=== PATIENT | male | born 1955 | race Caucasian/White ===

== ENCOUNTER 2016-12-09 02:32 | Emergency (ER) | payer OTHER ==
[~2016-12-09] VITALS: Ht 182.9 cm; Wt 113.6 kg
--- NOTE | 2016-12-09 02:29 | ED.REPORT ---
HPI-Stroke / CVA Dec 09, 2016 ED Provider: Dr. Christopher 61 y/o male with a hx of DM, and spinal stenosis presents to the ED via EMS due to right sided weakness, onset 30 min prior to arrival. As per the son, the pt was last normal between 21:00 - 22:00. The pt's son heard a thud and found him on the floor. He states "he must have gotten off the bed and walked around because he was on the other side of the bed". As per the EMS, the pt has right sided weakness, unintelligible speech and is unable to follow commands. He was completely immobile on the right side and could not possibly walked around the bed once the stroke occurred. His BP en route was 140/50 and he was A-fib with bradycardia. The A. fib is reportedly new. Nursing Notes Stated Complaint: CODE STROKE Nursing Notes Reviewed: Yes General Time Seen by Provider: 02:45 Chief Complaint Weakness Right-sided Hx Obtained From: Son, EMS Arrived By: Ambulance Time last known well 21:00 - 22:00 Sudden in Onset?: Yes Symptom Duration: Since onset Progression Since Onset: Constant Recent Healthcare: No recent doctor visit Similar Sx Previous: No Risk Factors NIH Stroke Scale Level of Consciousness: Movements to pain (2) Ask Month & Age: Both questions right (0) Open/Close Eyes/Hand [employer]mer [employer]: Performs both tasks (0) Horizontal EO Movements: Tot/forced gaze pares (2) Visual Calix: Complete hemianopsia (2) Facial Palsy: Partial paral, lower (2) Right Arm Motor Drift (10s): No effort, limb fails (3) Left Arm Motor Drift (10s): No drift 10 sec (0) Right Leg Motor Drift (5s): No movement (4) Left Leg Motor Drift (5s): No drift 5 sec (0) Limb Ataxia FNF/Heel-Fritz: Ataxia in 1 limb (1) Sensation (Arms/Legs/Face): Complete sensory loss (2) Language Aphasia: Severe, fragmented (2) Dysarthria: Severe slur unintel (2) Extinction/Inattention: Prfound raza-inattent (2) NIHSS Score: 24 Time NIHSS Performed: 03:00 Date NIHSS Performed: Dec 09, 2016 Past Medical History Past Medical History Diabetes A-fib Spinal stenosis Past Surgical History none reported Smoking History Unknown if Ever Smoker Social History Other Social History: Good social support Ambulatory Status Independent Review of Systems Unable to Obtain ROS Patient condition Complete sys rev & neg: except as marked. Physical Exam Initial Vital Signs Vital Signs (First) Date Time Temp Pulse Resp B/P Pulse Ox O2 Delivery O2 Flow Rate FiO2 12/09/16 02:42 35.8 50 19 115/59 95 Room Air Initial VS: Reviewed Abdomen / GI: Soft, Non-tender Extremities: Vascular intact, Neuro intact, No swelling, No tenderness Skin: Warm, Dry, No cyanosis Alertness: Positive: Responds to pain stimuli Head / Eyes: Atraumatic, Normocephalic, PERRL Neck: Atraumatic, Supple, Full range of motion Respiratory / Chest: Atraumatic, Breath sounds NL, Breath sounds = bilat, No respiratory distress, No rales, No rhonchi, No wheezing Cardiovascular: Heart sounds NL, No gallop, No murmurs, No rubs Heart Rate / Rhythm: Positive: Bradycardia, Irreg irregular rhythm Speech: Positive: Expressive aphasia Focal Weakness: Positive: Lower extremity R, Upper extremity R Sensory Deficit: Positive: Lower extremity R, Upper extremity R Cerebellar Dysfunction: Positive: Ataxia peripheral Neurologic: Dense right hemiplegia Leftward gaze preference Interpretation & Diagnostics Exam: CT head and neck Conclusion: Left MCA M1 segmental occlusion with patent distal branches. No significant stenosis. Proximal right ICA mild to moderate stenosis. Incidental mediastinal lymphadenopathy. Signed by Dr. Brii Veliz 12/09/16 04:44 Lab Results Interpretation Result Diagram: 12/09/16 0235 12/09/16 0235 Test 12/09/16 02:30 12/09/16 02:35 Hold Purple Top Tube Received (Received) Hold Blue Top Tube Received (Received) Hold [place] Top Tube Received (Received) White Blood Count 12.6th/mm3 (3.8-10.1) Red Blood Count 3.69mil/mm3 (4.40-5.80) Hemoglobin 11.0g/dL (13.8-17.2) Hematocrit 34.1% (41.0-50.0) Mean Corpuscular Volume 92.4fL (81-100) Mean Corpuscular Hemoglobin 29.8pg (27.0-35.0) Mean Corpuscular Hemoglobin Concent 32.3% (32.0-37.0) Red Cell Distribution Width 13.9% (12.3-15.4) Platelet Count 231bil/L (150-400) Neutrophils (%) (Auto) 60.5% (40-74) Lymphocytes (%) (Auto) 25.7% (14-46) Monocytes (%) (Auto) 11.4% (4-12) Eosinophils (%) (Auto) 1.7% (0-5) Basophils (%) (Auto) 0.5% (0-3) Prothrombin Time 10.9sec (8.1-12.5) Prothromb Time International Ratio 1.02ratio Activated Partial Thromboplast Time 27.1sec (22.8-33.0) Sodium Level 139mEq/L (134-144) Potassium Level 4.6mEq/L (3.5-5.2) Chloride Level 104mEq/L (97-108) Carbon Dioxide Level 19mmol/L (18-29) Blood Urea Nitrogen 50mg/dL (8-27) Creatinine 1.96mg/dL (0.76-1.27) Estimat Glomerular Filtration Rate 37mL/min (>59) Glucose Level 175mg/dL (60-99) Calcium Level 8.8mg/dL (8.5-10.1) Total Bilirubin 0.3mg/dL (0.0-1.2) Aspartate Amino Transf (AST/SGOT) 23U/L (0-50) Alanine Aminotransferase (ALT/SGPT) 24U/L (0-44) Alkaline Phosphatase 66U/L (25-160) Troponin T 0.026ug/L (0.0-0.011) Total Protein 6.8g/dL (6.4-8.4) Albumin 3.7g/dL (3.4-5.0) Alcohols < 10mg/dL (0-10) ECG Interpretation ECG Interpretation: Atrial fibrillation. Rate 51 RBBB and LAFB Time: 02:45 Interpreted by: ED physician CT Head Interpretation Hyprdense left MCA sign consistent with acute infarct. No bleed. Signed by Dr. 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 Onset was apparently just prior to being transported, as he was able to walk around the bed and then fell away from the bed. As he was found, he had actually no movement on the right side and could not possibly of walk. We conclude that this was an acute onset stroke after awakening, and date that time from arrival approximately thirty minutes. He is unable give any history. He is completely aphasic. Son and are present and confirmed that he has no history of atrial fibrillation, no prior stroke TIA symptoms. He has been reasonably well recently. He does continue to smoke. His initial exam showed a dense right hemiparesis with raza-inattention and stroke score of twenty-four. CT confirmed a dense MCA sign on the left, no ischemic areas yet apparent, and no bleed. TPA was given after discussion of risks benefits alternatives with son, including the significant possibility of bleed and fatal complications given the intensity of the stroke. Son understands and agrees that this is both a high risk and potentially better yield situation and TPA was initiated with his consent. [facility] neuro was consulted and agreed with the plan and agreed to accept in transfer. Discussed with the neurologist and also with an tobacco shaker excepting. Possibility of subsequent intervention still being considered. He has improved very slightly with some movement on the right side still no intelligible speech. He required sedation first with Naila Khan in 1 mg aliquots, ultimately 3 mg. He still was not able to hold himself still for the CT and was given 60 mg of ketamine for the study. ETA confirms persistent left MCA occlusion with some distal filling apparent. ALS transport was arranged and he is transported now in critical condition to [facility]. Source of Hx: Old records Re-Evaluation/Progress #1: Time of Eval: 02:01 Re-Evaluation/Progress Note: Talked to the pt's son. He wants TPA administered. Discussed diagnosis and plan to transfer to [facility]. He understands and agrees with the plan. All questions ansewerd. Re-Evaluation/Progress #2: Time of Eval: 03:13 Re-Evaluation/Progress Note: TPA administered. Consultation #1: Call Returned at: 04:35 Taping Foreman: Accepts admit Note: Talked to Dr. De Paz at [facility]. She accepts transfer. Consultation #2: Call Returned at: 04:42 Counseled Regarding: Diagnosis, Need for transfer Patient Discharge & Departure Impression: Primary Impression: Left middle cerebral artery stroke Additional Impressions: New onset a-fib Diabetes type 2, controlled Disposition: Transfer, Acute Care Facility Receiving Hospital: [facility] Transfer Accepted: Yes Transfer Accepted at: 04:35 Transfer Reason: Higher level of care Spoke with: Hospitalist (Dr. De Paz), Specialty physician (neurology) Patient Status: Stable for transfer, Stabilized within capabil Discharge Condition All VS Reviewed: Yes Condition: Critical Additional Instructions: Portions of this note were transcribed by Ruy Edwards. Dr.Roberts Mirna, personally performed the history, physical exam and medical decision-making;I reviewed and confirmed the accuracy of the information in the transcribed note. Signed by Bianca Lemons. 12/09/16 Referrals: Itzel Ramírez MD (PCP) Crit Care Except Billable Proc Time Spent: 30-74 minutes (sixty minutes) Services Performed: Patient management by me, Time spent at bedside, Reviewing test results, Reviewing imaging, Discussing patient care, Documentation in record, Time with fam/surrogate, Other (arranging transfer) Scribe Attestation Portions of this note were transcribed by Ruy Edwards. Dr.Roberts Mirna, personally performed the history, physical exam and medical decision-making;I reviewed and confirmed the accuracy of the information in the transcribed note. Signed by Bianca Lemons. 12/09/16 copies to: Itzel Ramírez MD, Christopher W MD Dec 09, 2016 02:29 Ruy Edwards Dec 09, 2016 02:51
[2016-12-09 02:42] VITALS: BP 115/59; PULSE 50; RESP 19; O2SAT 95
[2016-12-09 02:58] LABS: BASOPHILS % (AUTO) 0.5 % (0-3); EOSINOPHILS % (AUTO) 1.7 % (0-5); MONOCYTES % (AUTO) 11.4 % (4-12); Mean Corpuscular Hemoglobin 29.8 pg (27.0-35.0); Mean Corpuscular Volume 92.4 fL (81-100); NEUTROPHILS % (AUTO) 60.5 % (40-74); Platelet Count 231 bil/L (150-400)
[2016-12-09 03:05] LABS: INR 1.02 ratio
[2016-12-09 03:31] LABS: TROPONIN T 0.026 ug/L (0.0-0.011)
[2016-12-09] MEDS ORDERED: Ketamine 10 mg/mL 20 mL Inj IV ONE (03:45)
[2016-12-09] MEDS ORDERED: Alteplase (No Charge) 1 mg/mL Syringe IV ONE (04:30)
[2016-12-09] MEDS ORDERED: Alteplase (TPA) Inj 81 MG in IV Premix 1 EACH IV ONE (04:30)
[2016-12-09 07:20] VITALS: BP 125/49; PULSE 49; RESP 16; O2SAT 93
--- NOTE | 2016-12-09 07:53 | DRSVH ---
PROCEDURE: CT BRAIN (TPA) ([id number]) INDICATIONS: RIGHT SIDED WEAKNESS TECHNIQUE: Noncontrast 4.5 mm thick angled axial sections acquired from the foramen magnum to the vertex, with c oronal reformats. COMPARISON: [facility], CT, CT ANGIO BRAIN NECK TPA, 12/09/2016, 4:03. FINDINGS: Image quality: Mild motion artifacts. CSF spaces: Basal cisterns are patent. No extra-axial fluid collections. Ventricles are normal in size and shape. Brain: There is dense MCA sign on the left. No midline shift. There is mild cerebral volume loss. Mi ld periventricular white matter chronic small vessel ischemic changes are present. No intracranial ma sses or hemorrhage. Vidales-white matter interface is normal. Skull and face: Calvarium and visualized facial bones are intact, without suspicious lesions. Sinuses: Visualized sinuses and mastoids are clear. IMPRESSION: 1. Dense MCA sign on the left suspicious for thrombosis. 2. Cerebral volume loss and chronic microvascular ischemic changes. No significant discrepancy with the caustic cresylate shift superintendent radiology preliminary report. This study fulfills neurological imaging criteria for inclusion or exclusion of acute stroke therapie s based on available published neurological imaging guidelines. Dictated by: Haresh Potter M.D. on 12/09/2016 at 7:46 Approved by: Haresh Ptoter M.D. on 12/09/2016 at 7:50
--- NOTE | 2016-12-09 08:35 | DRSVH ---
PROCEDURE: CT ANGIO BRAIN NECK TPA INDICATIONS: RIGHT SIDED WEAKNESS TECHNIQUE: Pre-contrast 4.5 mm thick sections acquired from the foramen magnum to the vertex. After the adminis tration of intravenous contrast, 1 mm thick sections acquired from the aortic arch through the [place]. Post-contrast 4.5 mm thick sections then re-acquired from the foramen magnum to the vert ex. 3-dimensional pjmyrgs-jndoqhhoe-vaqmbxlggl (MIP) and/or volume rendering reformats were acquired of the central intracranial vasculature and neck separately. For radiation dose reduction, the foll owing was used: automated exposure control, adjustment of mA and/or kV according to patient size. COMPARISON: [facility], CT, BRAIN (TPA), 12/09/2016, 2:39. [facility], CT, C T CHEST WO CON, 11/04/2016, 10:12. FINDINGS: Image quality: Excellent. BRAIN: CSF spaces: Ventricles are normal in size and shape. Basal cisterns are patent. No extra-axial flu id collections. Brain: No midline shift. No intracranial bleeds or masses. Vidales-white matter interface appears int act. Skull and face: Calvarium and facial bones appear intact, without suspicious lesions. Orbits appear normal. Sinuses: Sinuses and mastoids are clear. HEAD CT ANGIOGRAPHY: Anterior circulation: Intracranial internal carotid arteries are normal in size and flow. The flow within the paired anterior cerebral arteries is normal and symmetric. Absence of contrast opacificat ion noted in the distal M1 segment of the left middle through artery and the proximal M2 branches of the left middle cerebral artery compatible with occlusive thrombosis. No aneurysms are seen. Posterior circulation: Visualized portions of the vertebral arteries demonstrate normal caliber, and join to form a normal appearing basilar artery. Flow within the posterior cerebral arteries is norm al and symmetric. No aneurysms are seen. NECK CT ANGIOGRAPHY: Carotid system: The great vessels demonstrate a conventional anatomy as they arise from the aortic a rch. The origins of the common carotid arteries appear patent. Atherosclerotic calcifications noted in the common carotid arteries and the internal carotid arteries bilaterally. Atherosclerotic disease causes approximately 50-60% stenosis of the origin of the right internal carotid artery. Atheroscler otic disease causes less than 50% stenosis of the origin of the left internal carotid artery. Posterior circulation: The origins of the vertebral arteries both appear widely patent. The more jackson perior extracranial portions of both vertebral arteries also demonstrate normal courses and calibers. They join to form a normal appearing basilar artery. Soft tissues: Visualized neck soft tissues demonstrate no suspicious abnormalities. Enlarged lymph n odes are noted in the chest which have increased in size compared to prior CT scan obtained 11/04/16. Bones: No suspicious bony lesions. Visualized cervical spine appears normally aligned. IMPRESSION: 1. Distal M1 segment and proximal M2 segment left middle through artery occlusion. 2. 50-60% stenosis of the origin of the right internal carotid artery. Less than 50% stenosis of the origin of left internal carotid artery. 3. Mediastinal lymphadenopathy which could be reactive or neoplastic. Please correlate with clinical and laboratory data. Dictated by: Shima Givens MD, PhD on 12/09/2016 at 8:19 Approved by: Shima Givens MD, PhD on 12/09/2016 at 8:33
== END 2016-12-09 05:18 | disposition short-term general hospital (02) ==
LOC: SED 02:32
DX: I63.412 Cerebral infarction due to embolism of left middle cerebral artery (principal); I48.91 Unspecified atrial fibrillation; E11.9 Type 2 diabetes mellitus without complications; W06.XXXA Fall from bed, initial encounter; Y93.9 Activity, unspecified; Y92.013 Bedroom of single-family (private) house as the place of occurrence of the external cause; Y99.8 Other external cause status; M48.00 Spinal stenosis, site unspecified; F17.200 Nicotine dependence, unspecified, uncomplicated
CPT/HCPCS: 36415; 37195; 70450; 70496; 70498; 80053; 82948; 84484; 85025; 85610; 85730; 93005; 99291; G0480; J2250; J2997; Q9967